=== PATIENT | male | born 1940 | race Caucasian/White ===

== ENCOUNTER → 2025-03-09 13:57 | Outpatient (REF) | payer MEDICARE, OTHER, SELFPAY ==
[2025-03-09 16:19] LABS: Hematocrit 43.1 % (39.0-52.0); Hemoglobin 15.0 g/dL (13.0-18.0); Mean Corp Hgb Conc. 34.8 g/dL (33.0-37.0); Mean Corpuscular Volume 90.2 fL (80.0-94.0); Nucleated Red Blood Cells % 0 % (-); Platelet Count 178 10^3/uL (130-400); Red Cell Dist. Width 13.1 % (11.5-14.5)
[2025-03-09 16:32] LABS: ALT (SGPT) 13 U/L (0-50); AST (SGOT) 17 U/L (17-59); Albumin 4.4 g/dl (3.5-5.0); Alkaline Phosphatase 62 U/L (38-126); Blood Urea Nitrogen 15 mg/dl (9-20); Calcium 9.3 mg/dl (8.4-10.2); Carbon Dioxide 23 mmol/L (22-30); Chloride 107 mmol/L (98-107); Glucose 129 mg/dl (70-99); HDL Cholesterol 53 mg/dl; LDL Cholesterol, Calculated 121 mg/dl; Potassium 3.9 mmol/L (3.5-5.1); Sodium 140 mmol/L (135-145); Total Protein 7.0 g/dl (6.3-8.2); Very Low Density Lipoprotein 12 mg/dl (0-30); eGFR > 60.00
[2025-03-09 17:03] LABS: TSH 2.75 uIU/ml (0.47-4.68)
== END ==
LOC: RCS 13:57
PROVIDERS: ATTENDING PHYSICIAN Internal Medicine
DX: I50.32 Chronic diastolic (congestive) heart failure (principal); E78.2 Mixed hyperlipidemia; I10 Essential (primary) hypertension; I63.412 Cerebral infarction due to embolism of left middle cerebral artery
CPT/HCPCS: 36415; 80053; 80061; 84443; 85025; 93005; 93306